=== PATIENT | female | born 1990 | race Caucasian/White ===

== ENCOUNTER 2023-11-28 07:09 | Day surgery (SDC) | payer OTHER ==
[~2023-11-28 07:09] MED LIST: Lactated Ringers 1,000 ML IV SCH; Sodium Chloride 0.9% 10 ML Syringe FLUSH PRN; Sodium Chloride 0.9% 10 ML Syringe FLUSH SCH
[2023-11-28] MEDS: Lactated Ringers 1,000 ML IV SCH (07:25)
[2023-11-28] MEDS ORDERED: Lidocaine 1% 4 ML ONE (07:42)
[2023-11-28] MEDS ORDERED: Propofol 200 MG/20 ML SDV ONE ×3 (07:42)
[2023-11-28] MEDS ORDERED: Midazolam 1 MG/ML 2 ML SDV ONE (07:42)
[2023-11-28] MEDS ORDERED: Lidocaine 1% PF 2 ML SDV ONE ×2 (08:20)
== END 2023-11-28 09:15 | disposition home or self-care (01) ==
LOC: JD.SDS 07:09
PROVIDERS: ATTEND Surgery
DX: K29.50 Unspecified chronic gastritis without bleeding (principal); F41.9 Anxiety disorder, unspecified; F31.9 Bipolar disorder, unspecified; E66.9 Obesity, unspecified; Z68.41 Body mass index [BMI] 40.0-44.9, adult; F17.210 Nicotine dependence, cigarettes, uncomplicated; Z79.899 Other long term (current) drug therapy; Z88.2 Allergy status to sulfonamides
CPT/HCPCS: 43239; J2250; J2704; J7120; 00731; J3490

== ENCOUNTER 2024-08-13 10:44 | Day surgery (SDC) | payer OTHER, BC ==
[~2024-08-13 10:44] MED LIST changes: +HYDROmorphone 0.5 MG/0.5 ML Syringe IVPUSH PRN; -Lactated Ringers 1,000 ML IV SCH; +Ondansetron 4 MG/2 ML SDV IVPUSH PRN; +fentaNYL 100 MCG/2 ML SDV IVPUSH PRN
[2024-08-13] MEDS: Lactated Ringers 1,000 ML IV SCH (11:00)
[2024-08-13] MEDS ORDERED: Ropivacaine 0.5% 5 MG/ML 30 ML SDV ONE (12:28)
[2024-08-13] MEDS ORDERED: dexmedeTOMIDine HCl 200 MCG/2 ML SDV ONE (12:29)
[2024-08-13] MEDS ORDERED: Midazolam 1 MG/ML 2 ML SDV ONE (12:33)
[2024-08-13] MEDS ORDERED: fentaNYL 100 MCG/2 ML SDV ONE ×2 (12:34→13:07)
[2024-08-13] MEDS ORDERED: Propofol 200 MG/20 ML SDV ONE ×5 (13:01→14:09)
[2024-08-13] MEDS ORDERED: Rocuronium 50 MG/5 ML Vial ONE (13:07)
[2024-08-13] MEDS ORDERED: Dexamethasone 4 MG/ML 5 ML MDV ONE (13:11)
[2024-08-13] MEDS ORDERED: Ondansetron 4 MG/2 ML SDV ONE (13:11)
[2024-08-13] MEDS ORDERED: ceFAZolin 2 GM Vial ONE (13:38)
[2024-08-13] MEDS: Bupivacaine 0.5% 30 ML SDV ONE (14:30)
[2024-08-13] MEDS ORDERED: HYDROmorphone 0.5 MG/0.5 ML Syringe IVPUSH PRN (14:59)
[2024-08-13] MEDS ORDERED: Ondansetron 4 MG/2 ML SDV IVPUSH PRN (14:59)
[2024-08-13] MEDS ORDERED: fentaNYL 100 MCG/2 ML SDV IVPUSH PRN (14:59)
== END 2024-08-13 16:05 | disposition home or self-care (01) ==
LOC: JD.SDS 10:44
PROVIDERS: ATTEND Podiatrist Foot & Ankle Surgery
DX: M62.462 Contracture of muscle, left lower leg (principal); M72.2 Plantar fascial fibromatosis; M89.8X7 Other specified disorders of bone, ankle and foot; B07.0 Plantar wart; K21.9 Gastro-esophageal reflux disease without esophagitis; E66.9 Obesity, unspecified; Z88.2 Allergy status to sulfonamides; Z68.41 Body mass index [BMI] 40.0-44.9, adult; Z79.899 Other long term (current) drug therapy
CPT/HCPCS: 17110; 28045; 29893; 29999; 64447; 64450; C1889; J0665; J0690; J1100; J2250; J2405; J2704; J2795; J3010; J7120; 01474; J3490